=== PATIENT | female | born 1930 | race Caucasian/White ===

== ENCOUNTER 2017-12-12 02:27 | Inpatient (IN) | payer MEDICARE, OTHER ==
[~2017-12-12] VITALS: Ht 165.1 cm; Wt 75.2 kg
--- NOTE | ~2017-12-12 | HP ---
PATIENT: LILLIAN HOWARD MEDICAL RECORD: [id number] ACCOUNT: [id number] LOCATION:[address] : 30 ADMISSION DATE: 12/12/17 HISTORY AND PHYSICAL EXAMINATION DATE OF ADMISSION: 12/12/2017. CHIEF COMPLAINT: Shortness of breath. HISTORY OF PRESENT ILLNESS: The patient is an 87-year-old female who states approximately 10 days ago, she developed some sharp pain in the left side of her chest. She reported a stabbing type of pain. She did take aspirin, this resolved. Yesterday, she went to her daughters to have Easter. Shortly after returning home, the patient felt as if she was getting more short of breath, presented to the Emergency Room for evaluation. The patient was found to have a right pleural effusion. Therefore, she was admitted. 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 The patient is currently on Arimidex for this. The patient's history is significant for having had hypothyroidism as well as having hypertension. She has had rheumatoid arthritis. She has decreased hearing acuity. She has had renal insufficiency. MEDICATIONS: Include Arimidex 1 mg p.o. daily, aspirin 325 one p.o. every day, levothyroxine 50 mcg once a day, losartan 100 mg once a day, vitamin D3 1000 international units daily. ALLERGIES: TOPROL. PAST SURGICAL HISTORY: The patient has had a hysterectomy. She has also had a lumpectomy. She had cholecystectomy. FAMILY HISTORY: Mother of diabetes mellitus. One brother coronary artery bypass grafting. One brother had skin cancer. Father had prostate cancer. SOCIAL HISTORY: The patient is . She denies any ethanol or tobacco use or abuse. She was born and raised in [place]. REVIEW OF SYSTEMS: CONSTITUTIONAL: She denies any headaches, seizure or syncope. HEENT: She denies change in vision or auditory acuity. PULMONARY: She does report increased shortness of breath. CARDIOVASCULAR: She has had no chest pain, palpitation, PND, or orthopnea. GASTROINTESTINAL: No chronic nausea, vomiting, melena or hematochezia. GENITOURINARY: No urgency, frequency, or dysuria. PHYSICAL EXAMINATION: GENERAL: In the Emergency Room, the patient was alert. She is oriented times 3. Her pulse 109, respirations 18, blood pressure 173/87, temperature is 96.8, O2 sat is 97%. HEENT: Head is normocephalic. No lesions. Ears: TMs clear. Eyes: Pupils equal, round and reactive to light. Her extraocular movements are intact. Her nasal cavity, oral cavity, oropharynx clear. NECK: Supple. There is no adenopathy. HEART: Has a regular rate. HISTORY AND PHYSICAL [id number] LILLIAN HOWARD LUNGS: Clear. ABDOMEN: Soft, bowel sounds positive. No organomegaly. GENITAL AND RECTAL: Deferred. EXTREMITIES: Lower extremities have no edema. LABORATORY DATA: The patient had a sodium 142, potassium 4.1, chloride 107, CO2 is 22.7, BUN 21, creatinine 1.4, glucose slightly elevated at 152. Liver functions were unremarkable. Cardiac enzymes unremarkable. She had a proBNP slightly elevated at 654. White count 6.7, hemoglobin 14.7, hematocrit 44.1, her platelets were 152. X-ray as reported by the Emergency Room physician showed pleural effusion on the left. ASSESSMENT: 1. New left-sided pleural effusion. 2. History of breast cancer with lumpectomy. 3. Hypertension. 4. Hypothyroidism. 5. Hysterectomy and cholecystectomy. PLAN: The patient will be admitted. We will get a CT-guided thoracentesis. Also, pulmonary consultation will be obtained. The patient will be placed on antibiotics as well. Continue to evaluate. TRANSINT:[id number] Voice Confirmation ID: [id number] DOCUMENT ID: [id number] SELENA ROMAN MD at 0701 CC: [id number] DICTATION DATE: 12/12/17740 DATAPOWER DEVELOPER: 12/12/17 1038 ADM IN [facility] [address] [place] [address]
--- NOTE | ~2017-12-12 | EC ---
PATIENT:LILLIAN HOWARD DATE OF SERVICE: 12/12/17 SEX: F MEDICAL RECORD: [id number] DATE OF : 30 LOCATION[facility] AGE OF PATIENT: 87 ADMISSION DATE: 12/12/17 REFERRING PHYSICIAN: INTERPRETING PHYSICIAN: PRASHANTH SANFORD MD ECHOCARDIOGRAM REPORT ECHO CHARGES 4 ECHO COMPLETE Date: 12/13 CLINICAL DIAGNOSIS: EMOLUS, ASSESS FOR CLOTS ECHOCARDIOGRAPHIC MEASUREMENTS (adult normal given) AC root (d.<3.7cm) 3.7 cm LV Septum d (<1.2 cm> 1.2 cm Valve Excursion 1.7 cm LV Septum (systole) 1.7 cm Left Atria (s.<4.0cm> cm LVPW d(<1.2cm) 1.5 cm RV (d.<2.3cm) 3.7 cm LVPW (sytole) 1.8 cm LV diastole(<5.6CM) 5.7 cm MV E-F(>70mm/sec) cm LV systole 3.3 cm LVOT Diameter 1.6 cm MV exc.(>10mm) 1.8 cm Est.ejection fraction (50-75%) % DOPPLER: LVIT cm/sec A 111 cm/sec E 66.0 cm/sec LA cm/sec RVSP 38 mmHg LVOT 102 cm/sec AOP1/2T m/s Asc. Ao 180 cm/sec RVOT 71 cm/sec RA cm/sec PA 115 cm/sec AV Gradient Peak 12.98mmHg AV Mean 5.95 mmHg AV Area 1.8 cm MV Gradient Peak 7.08 mmHg MV Mean 2.33 mmHg MV Area cm COMMENTS: Personal Computer Network Engineer: 2 STELLA MATA County Auditor: 4 Dr. Sanford TAPE# PACS Pericardial Effusion N DATE OF SERVICE: PROCEDURE: Transthoracic echocardiogram. FINDINGS: 1. The left ventricle has moderate concentric left ventricular hypertrophy. There is marked dyssynchrony of the left ventricular wall motion consistent with his very wide bundle branch block that makes definitive estimation of the ejection fraction more difficult. However, there appears to be hypokinetic areas throughout with an ejection fraction of 30% to 35%. ECHOCARDIOGRAM REPORT [id number] LILLIAN HOWARD 2. The mitral valve has mitral annular calcification with [id number] mitral regurgitation. 3. The aortic valve has sclerosis, trace aortic insufficiency, otherwise normal function. 4. The tricuspid valve has mild tricuspid regurgitation, RVSP 35-40 mmHg. 5. Pericardium has trace pericardial effusion. 6. The IVC is dilated consistent with elevations in central venous pressure. 7. The right ventricle is mildly dilated. 8. The right atrium is mildly dilated. CONCLUSION: The patient has evidence of global hypokinesis, moderate cardiomyopathy, ejection fraction 30% to 35%; however, this number may not be entirely accurate because of his significant regional wall motion abnormalities due to the his bundle branch block. TRANSINT:[id number] Voice Confirmation ID: [id number] DOCUMENT ID: [id number] PRASHANTH SANFORD MD at 1426 CC: [id number] DICTATION DATE: 12/14/17828 GENERAL MERCHANDISE SALESPERSON: 12/14/17 1117 DIS IN 12/13/17 [facility] [address] [place] [address]
--- NOTE | ~2017-12-12 | CN ---
PATIENT NAME:LILLIAN MACK MEDICAL RECORD: [id number] : 30 LOCATION:[facility] ADMIT DATE: 12/12/17 ACCOUNT: [id number] CONSULTING PHYSICIAN: JHONNY COTTER MD REFERRING PHYSICIAN: SELENA ROMAN MD DATE OF CONSULTATION: 12/12/2017 CONSULT REQUESTING PHYSICIAN: Selena Roman MD REASON FOR CONSULTATION: Left-sided pleural effusion, pleurisy, possible pneumonia. HISTORY OF PRESENT ILLNESS: Ms. Mack is an 87-year-old very pleasant lady, but she is very hard of hearing. According to the patient, she is sick for the last 10 days. She developed sudden left-sided pleuritic type of chest pain, getting worse with coughing and sneezing. There was no associated fever or chill. Since yesterday, she has some worsening shortness of breath with exertion. Denies any wheezing. No significant cough. No sputum production. REVIEW OF SYSTEMS: As in history of present illness. PAST MEDICAL HISTORY: 1. History of CA of the breast in 2011. 2. Hypothyroidism. 3. Hypertension. 4. Rheumatoid arthritis. 5. Hard of hearing. 6. Chronic renal insufficiency. ALLERGIES: SHE IS ALLERGIC TO TOPROL. PRESENT MEDICATIONS: [employer] is reviewed. PERSONAL AND SOCIAL HISTORY: The patient is a nonsmoker and nondrinker. She is a . FAMILY HISTORY: Noncontributory. PHYSICAL EXAMINATION: GENERAL: Now, the patient is lying comfortably. She is not in acute distress. VITAL SIGNS: The blood pressure is 129/66, pulse is 65, respirations 18, temperature 98.8, SpO2 of 97% on 2.5 liters nasal cannula. HEENT: Conjunctivae are pink. Sclerae are not icteric. NECK: Supple. No JVD. CHEST: The chest excursion is minimal on both sides. There is a crackle at the left base. No wheezing. HEART: Rhythm regular. Normal sound. No murmur. ABDOMEN: Soft. Bowel sounds present. No hepatosplenomegaly. RECTAL: Deferred. EXTREMITIES: No cyanosis, no clubbing, no pedal edema. SKIN: The skin is warm, normal turgor. CENTRAL NERVOUS SYSTEM: The patient is awake and alert. She is very hard of hearing. Other cranial nerves are intact. CHEST RADIOGRAPH: There is atelectasis, infiltrate left lower lobe, possible CONSULT REPORT [id number] LILLIAN MACK small pleural effusion. OTHER LABORATORY DATA: CBC: The WBC is 6.7, hemoglobin 14.7, hematocrit 44.1, the platelet count 152. Chemistry: Sodium 142, potassium 4.2, BUN is 21, creatinine is 1.4. IMPRESSION: 1. Acute hypoxic respiratory failure. 2. Left-sided pleurisy. The differential diagnoses include, but not limited to; A. Pneumonia. B. Possible connective tissue disorder. C. Rule out pulmonary embolism. 3. Left lower lobe pneumonia. 4. Left pleural effusion. 5. Hypothyroidism. 6. Hypertension. 7. History of rheumatoid arthritis. RECOMMENDATION: I will check the CTA of the chest. Check the SURESH, rheumatoid factor. Continue empiric Zithromax and Rocephin. Supplemental oxygen is required. Check the CTA of the chest. Dr. Roman, thank you for involving me in the care of Ms. Mack. TRANSINT:[id number] Voice Confirmation ID: [id number] DOCUMENT ID: [id number] JHONNY COTTER MD at 1410 CC: SELENA ROMAN [id number] DICTATION DATE: 12/12/171741 ARTIFICIAL LEATHER CALENDER OPERATOR: 12/13/17 0207 DIS IN 12/13/17 [facility] [address] [place] [address]
[~2017-12-12 02:27] MED LIST: ANASTROZOLE1 MG PO; ASPIRIN325 MG PO; COZAAR100 MG PO; SYNTHROID50 MCG PO
[2017-12-12 02:44] LABS: BASOPHILS 0.1 % (0-2); EOSINOPHILS 1.8 % (0-7); HEMATOCRIT 44.1 % (36.0-48.0); HEMOGLOBIN 14.7 g/dL (12-16); IMMATURE GRANULOCYTES 0.4 % (0-5); LYMPHOCYTES 38.5 % (15-50); MCH 32.5 pg (26.0-34.0); MCHC 33.3 g/dL (31.0-37.0); MCV 97.4 fL (80.0-100.0); MEAN PLATELET VOLUME 11.4 fL (7.4-10.4); NEUTROPHILS 50.2 % (40-80); PLATELET COUNT 152 10x3/uL (130-400); RBC 4.53 10x6/uL (4.00-5.40); RDW 12.9 % (11.5-14.5); WBC 6.7 10x3/uL (4.8-10.8)
[2017-12-12 02:57] LABS: ALBUMIN 3.4 g/dL (3.4-5.0); ALKALINE PHOSPHATASE 112 U/L (46-116); ALT (SGPT) 24 U/L (10-68); BILIRUBIN - TOTAL 0.66 mg/dL (0.2-1.3); CALC OSMOLALITY 288 mosm/kg (275-300); CALCIUM 8.8 mg/dL (8.5-10.1); CARBON DIOXIDE 22.7 mmol/L (21.0-32.0); CHLORIDE - SERUM 107 mmol/L (98-107); CREATININE - SERUM 1.4 mg/dL (0.6-1.3); GLUCOSE 152 mg/dL (74-106); POTASSIUM - SERUM 4.2 mmol/L (3.5-5.1); PROTEIN - SERUM 7.7 g/dL (6.4-8.2); SODIUM 142 mmol/L (136-145); UREA NITROGEN 21 mg/dL (7-18); eGFR NON AFRICAN AMERICAN 38 mL/min (90-120)
[2017-12-12 03:07] LABS: CHOL - HDL RATIO 6.1 ratio (2.3-4.1); CHOLESTEROL, TOTAL 258 mg/dL (0-200); CKMB 3.1 U/L (0.0-3.6); CREATINE KINASE 183 UL (21-215); HDL CHOLESTEROL 42 mg/dL (32-96); LDL CHOLESTEROL 196 mg/dL (0-100); LDL-HDL RATIO 4.7 ratio (1.5-3.5); PRO BNP 654 pg/mL (0-450); TRIGLYCERIDE 100 mg/dL (30-200); TROPONIN-I 0.036 ng/mL (0.000-0.060)
[2017-12-12 04:36] VITALS: BMI 24.1
[2017-12-12 08:35] VITALS: BP 141/68
[2017-12-12 11:40] VITALS: BP 124/64
[2017-12-12 14:26] VITALS: BMI 24.1
[2017-12-12 14:58] VITALS: BP 129/66
[2017-12-12 15:34] VITALS: BP 129/66
[2017-12-12 21:09] VITALS: BP 132/63
[2017-12-13] VITALS (9 sets, daily range): BP systolic 130–178; BP diastolic 55–103; Ht 165.1 cm; Wt 75.2 kg
[2017-12-13 04:11] LABS: BASOPHILS 0.3 % (0-2); EOSINOPHILS 2.5 % (0-7); HEMATOCRIT 38.5 % (36.0-48.0); HEMOGLOBIN 12.5 g/dL (12-16); IMMATURE GRANULOCYTES 0.3 % (0-5); LYMPHOCYTES 28.8 % (15-50); MCH 31.8 pg (26.0-34.0); MCHC 32.5 g/dL (31.0-37.0); MEAN PLATELET VOLUME 11.6 fL (7.4-10.4); NEUTROPHILS 58.1 % (40-80); PLATELET COUNT 141 10x3/uL (130-400); RBC 3.93 10x6/uL (4.00-5.40); RDW 13.1 % (11.5-14.5); WBC 6.8 10x3/uL (4.8-10.8)
[2017-12-13 04:22] LABS: APTT 36.7 SECONDS (22.8-39.4); INR 1.13 (0.85-1.17); PROTIME 14.1 SECONDS (11.6-15.0)
[2017-12-13 04:28] LABS: ANION GAP 10.5 mmol/L (8-16); BILIRUBIN - TOTAL 0.41 mg/dL (0.2-1.3); CALCIUM 8.1 mg/dL (8.5-10.1); CREATININE - SERUM 1.5 mg/dL (0.6-1.3); POTASSIUM - SERUM 4.5 mmol/L (3.5-5.1); PROTEIN - SERUM 5.9 g/dL (6.4-8.2)
[2017-12-13 04:29] LABS: ALBUMIN 2.4 g/dL (3.4-5.0)
[2017-12-13 10:55] LABS: PROTEIN - BODY FLUID 3.5 G/DL
[2017-12-13 11:30] LABS: MACROPHAGES BF 12 %; MESOTHELIALS BF 10 %; NEUT - BF 45 %
[2017-12-13 14:02] LABS: INR 1.15 (0.85-1.17); PROTIME 14.3 SECONDS (11.6-15.0)
[2017-12-14 14:21] LABS: ANA REFLEX - DIRECT Negative (Negative)
[2017-12-15 15:24] LABS: AFB SPECIMEN PROCESSING Not Indicated (())
[2017-12-21 11:21] LABS: FUNGUS STAIN Final report (())
[2018-01-16 12:10] LABS: FUNGUS MYCOLOGY CULTURE Final report (())
[2018-02-01 13:19] LABS: ACID FAST CULTURE Negative (()); ACID FAST SMEAR Negative (())
== END 2017-12-13 15:49 | disposition short-term general hospital (02) | DRG 175 ==
LOC: D.ER 02:27 → D.M2 03:42 → D.ICU 03:42
PROVIDERS: Family Medicine; General Practice; Internal Medicine Pulmonary Disease
PROC: 0W9B3ZZ Drainage of Left Pleural Cavity, Percutaneous Approach (ICD-10-PCS; principal; 2017-12-13 09:15)
DX: I26.92 Saddle embolus of pulmonary artery without acute cor pulmonale (principal); J96.01 Acute respiratory failure with hypoxia; J18.9 Pneumonia, unspecified organism; J90 Pleural effusion, not elsewhere classified; I10 Essential (primary) hypertension; M06.9 Rheumatoid arthritis, unspecified; E03.9 Hypothyroidism, unspecified; Z85.3 Personal history of malignant neoplasm of breast

== ENCOUNTER 2018-01-30 10:42 | Outpatient (CLI) | payer MEDICARE, OTHER ==
[~2018-01-30] VITALS: Ht 165.1 cm; Wt 72.7 kg
[2018-01-30 11:51] LABS: BASOPHILS 0.2 % (0-2); EOSINOPHILS 1.2 % (0-7); HEMATOCRIT 38.2 % (36.0-48.0); HEMOGLOBIN 12.4 g/dL (12-16); LYMPHOCYTES 15.6 % (15-50); MCH 31.9 pg (26.0-34.0); MCHC 32.5 g/dL (31.0-37.0); MCV 98.2 fL (80.0-100.0); MEAN PLATELET VOLUME 11.4 fL (7.4-10.4); MONOCYTES 10.4 % (2-11); NEUTROPHILS 72.6 % (40-80); PLATELET COUNT 147 10x3/uL (130-400); RBC 3.89 10x6/uL (4.00-5.40); RDW 13.5 % (11.5-14.5); WBC 4.1 10x3/uL (4.8-10.8)
[2018-01-30] MEDS ORDERED: MEXITIL 150 MG150 MG PO (11:51)
[2018-01-30 11:52] LABS: APTT 35.5 SECONDS (22.8-39.4); INR 1.13 (0.85-1.17); PROTIME 14.1 SECONDS (11.6-15.0)
[2018-01-30] MEDS ORDERED: XARELTO10 MG PO (11:53)
[2018-01-30] MEDS ORDERED: MULTIPLE VITAMI1 TA1 PO (11:53)
[2018-01-30 11:58] VITALS: BP 152/87; Ht 165.1 cm; Wt 72.7 kg
[2018-01-30 12:14] LABS: ANION GAP 16.1 mmol/L (8-16); CARBON DIOXIDE 23.9 mmol/L (21.0-32.0); CREATININE - SERUM 1.7 mg/dL (0.6-1.3)
== END 2018-01-30 17:35 | disposition home or self-care (01) ==
LOC: D.SP 10:42 → D.CT 13:00 → D.SP 13:00 → D.OPS 13:00 → D.SP 17:35
PROVIDERS: Radiology Diagnostic Radiology
DX: J90 Pleural effusion, not elsewhere classified (principal); I26.99 Other pulmonary embolism without acute cor pulmonale; A49.02 Methicillin resistant Staphylococcus aureus infection, unspecified site; L02.91 Cutaneous abscess, unspecified; Z01.812 Encounter for preprocedural laboratory examination

== ENCOUNTER 2018-02-26 17:54 | Emergency (ER) | payer MEDICARE, OTHER ==
[~2018-02-26] VITALS: Ht 165.1 cm; Wt 72.7 kg
[~2018-02-26 17:54] MED LIST changes: +MEXITIL 150 MG150 MG PO; +MULTIPLE VITAMI1 TA1 PO; +XARELTO10 MG PO
[2018-02-26 18:01] VITALS: Ht 165.1 cm; Wt 72.7 kg
[2018-02-26] MEDS ORDERED: FUROSEMIDE40 MG PO (18:08)
[2018-02-26] MEDS ORDERED: ANASTROZOLE1 MG PO (18:08)
[2018-02-26] MEDS ORDERED: K-TAB10 MEQ PO (18:09)
[2018-02-26] MEDS ORDERED: XARELTO20 MG PO (18:10)
[2018-02-26 18:47] LABS: CKMB 1.3 U/L (0.0-3.6); CREATINE KINASE 84 UL (21-215); PRO BNP 809 pg/mL (0-450)
[2018-02-26 18:50] LABS: TROPONIN-I < 0.017 ng/mL (0.000-0.060)
[2018-02-26 20:02] VITALS: BP 135/85
== END 2018-02-26 20:04 | disposition home or self-care (01) ==
LOC: D.ER 17:54
PROVIDERS: Emergency Medicine
DX: R07.89 Other chest pain (principal); Z86.711 Personal history of pulmonary embolism; Z86.73 Personal history of transient ischemic attack (TIA), and cerebral infarction without residual deficits; I10 Essential (primary) hypertension

== ENCOUNTER → 2018-11-28 14:36 | Outpatient (CLI) | payer MEDICARE, OTHER ==
[2018-02-26 18:01] VITALS: BMI 26.6
[~2018-11-28 14:36] MED LIST changes: +FUROSEMIDE40 MG PO; +K-TAB10 MEQ PO; +XARELTO20 MG PO
== END | disposition home or self-care (01) ==
LOC: D.US 14:36
PROVIDERS: ATTEND Family Medicine
DX: R10.10 Upper abdominal pain, unspecified (principal)

== ENCOUNTER 2018-12-01 19:00 | Outpatient (CLI) | payer MEDICARE, OTHER ==
[2018-02-26 18:01] VITALS: BMI 26.6
== END 2018-12-01 23:59 | disposition home or self-care (01) ==
LOC: D.MAMMO 19:00
PROVIDERS: ATTEND Family Medicine
DX: N63.11 Unspecified lump in the right breast, upper outer quadrant (principal)

== ENCOUNTER → 2018-12-07 09:37 | Outpatient (CLI) | payer MEDICARE, OTHER ==
[2018-02-26 18:01] VITALS: BMI 26.6
== END | disposition home or self-care (01) ==
LOC: D.MRI 09:37
PROVIDERS: ATTEND Family Medicine
DX: K83.9 Disease of biliary tract, unspecified (principal)

== ENCOUNTER → 2018-12-14 12:53 | Outpatient (CLI) | payer MEDICARE, OTHER ==
[2018-02-26 18:01] VITALS: BMI 26.6
== END | disposition home or self-care (01) ==
LOC: D.US 12:53
PROVIDERS: ATTEND Family Medicine
DX: N63.11 Unspecified lump in the right breast, upper outer quadrant (principal)

== ENCOUNTER 2019-01-07 18:35 | Inpatient (IN) | payer MEDICARE, OTHER ==
[~2019-01-07] VITALS: Ht 165.1 cm; Wt 49.9 kg
[2019-01-07 18:59] LABS: BASOPHILS 0.2 % (0-2); EOSINOPHILS 0.2 % (0-7); HEMATOCRIT 43.8 % (36.0-48.0); HEMOGLOBIN 15.3 g/dL (12-16); IMMATURE GRANULOCYTES 0.5 % (0-5); LYMPHOCYTES 15.4 % (15-50); MCH 31.2 pg (26.0-34.0); MCHC 34.9 g/dL (31.0-37.0); MCV 89.4 fL (80.0-100.0); MEAN PLATELET VOLUME 10.8 fL (7.4-10.4); MONOCYTES 11.6 % (2-11); NEUTROPHILS 72.1 % (40-80); PLATELET COUNT 159 10x3/uL (130-400); RDW 15.3 % (11.5-14.5); WBC 6.6 10x3/uL (4.8-10.8)
[2019-01-07 19:03] LABS: APPEARANCE CLEAR (CLEAR); BILIRUBIN 1+ (NEGATIVE); COLOR DK YELLOW (YELLOW); GLUCOSE NEGATIVE (NEGATIVE); KETONE MODERATE mg/dL (NEGATIVE); NITRITE NEGATIVE (NEGATIVE); PROTEIN NEGATIVE (NEGATIVE)
[2019-01-07 19:14] LABS: ANION GAP 17.4 mmol/L (8-16); BILIRUBIN - TOTAL 2.07 mg/dL (0.2-1.3); CALCIUM 9.6 mg/dL (8.5-10.1); CARBON DIOXIDE 25.7 mmol/L (21.0-32.0); POTASSIUM - SERUM 3.1 mmol/L (3.5-5.1); PROTEIN - SERUM 6.7 g/dL (6.4-8.2)
[2019-01-07 19:34] LABS: APTT 33.9 SECONDS (22.8-39.4); INR 1.13 (0.85-1.17)
[2019-01-07 19:50] LABS: MAGNESIUM - SERUM 1.6 mg/dL (1.8-2.4); THYROID STIMULATING HORMONE 7.03 uIU/mL (0.36-3.74)
[2019-01-07 19:52] LABS: TROPONIN-I 0.017 ng/mL (0.000-0.060)
[2019-01-07 20:57] VITALS: BP 149/92
--- NOTE | 2019-01-07 21:35 | NUR ---
PT ARRIVED ON UNIT VIA STRETCHER ESCORTED BY ER STAFF AND FAMILY MEMBER. TRANSFERRED TO BED AND POSITIONED FOR COMFORT. PT TURNED ONTO RIGHT SIDE PROPPED WITH PILLOW AND HEELS BRIDGED. IV FLUIDS RE-STARTED PER ORDER. DAUGHTER IS AT BEDSIDE.
--- NOTE | 2019-01-07 22:45 | NUR ---
PT TAKEN TO CT / RADIOLOGY FOR CT SCANS VIA BED.
--- NOTE | 2019-01-07 23:05 | NUR ---
PT RETURNED FROM RADIOLOGY VIA BED.
[2019-01-08] VITALS (8 sets, daily range): BP systolic 125–141; BP diastolic 58–69; Ht 165.1 cm; Wt 49.9 kg
--- NOTE | 2019-01-08 00:38 | NUR ---
ADMISSION ASSESSMENT AND HISTORY COMPLETE.
--- NOTE | 2019-01-08 07:30 | NUR ---
PT RESTING IN BED WITH EYES CLOSED. EASILY AROUSED. [place]. NO ACUTE DISTRESS NOTED. DENIES PAIN AT THIS TIME. IV TO LEFT FOREARM WITH NS @ 125ML/HR INFUSING VIA PUMP. SITE WITHOUT REDNESS OR EDEMA. PT DENIES FURTHER NEEDS AT THIS TIME. CL WITHIN REACH. ENCOURAGED TO CALL WITH NEEDS. CONTINUE POC
--- NOTE | 2019-01-08 07:55 | NUR ---
PT SITTING UP IN BED WITH FAMILY AT BEDSIDE. NO ACUTE DISTRESS NOTED. RESP EVEN AND UNLABORED. DENIES PAIN AT THIS TIME. IV TO RIGHT FOREARM, SALINE LOC. IV TO LEFT CHEST PORT, SALINE LOC. BOTH PATENT, WITHOUT REDNESS OR EDEMA. EASY TO FLUSH. PT AND FAMILY DENY NEEDS AT THIS TIME CL WITHIN REACH. ENCOURAGED TO CALL WITH NEEDS.
[2019-01-08 10:19] LABS: BASOPHILS 0.1 % (0-2); EOSINOPHILS 0.1 % (0-7); HEMATOCRIT 39.1 % (36.0-48.0); HEMOGLOBIN 13.6 g/dL (12-16); IMMATURE GRANULOCYTES 0.7 % (0-5); LYMPHOCYTES 14.9 % (15-50); MCH 31.2 pg (26.0-34.0); MCHC 34.8 g/dL (31.0-37.0); MCV 89.7 fL (80.0-100.0); MEAN PLATELET VOLUME 10.8 fL (7.4-10.4); MONOCYTES 9.3 % (2-11); NEUTROPHILS 74.9 % (40-80); PLATELET COUNT 149 10x3/uL (130-400); RBC 4.36 10x6/uL (4.00-5.40); RDW 15.2 % (11.5-14.5); WBC 7.4 10x3/uL (4.8-10.8)
[2019-01-08 10:25] LABS: ALBUMIN 1.7 g/dL (3.4-5.0); ANION GAP 13.7 mmol/L (8-16); BILIRUBIN - TOTAL 1.64 mg/dL (0.2-1.3); CALCIUM 8.7 mg/dL (8.5-10.1); CARBON DIOXIDE 23.5 mmol/L (21.0-32.0); CREATININE - SERUM 0.9 mg/dL (0.6-1.3); POTASSIUM - SERUM 3.2 mmol/L (3.5-5.1); PROTEIN - SERUM 5.7 g/dL (6.4-8.2)
--- NOTE | 2019-01-09 03:50 | NUR ---
2015)rec'd. chge of shift awake confused as to time place situation.assisted onto bed pain voided 250cc dk jake urine. carleen well with max. assist. will continue to monitor for any chges and follow current plan of care
[2019-01-09 04:00] VITALS: BP 132/63
[2019-01-09 05:27] LABS: BASOPHILS 0 % (0-2); EOSINOPHILS 0 % (0-7); HEMATOCRIT 38.5 % (36.0-48.0); HEMOGLOBIN 13.5 g/dL (12-16); IMMATURE GRANULOCYTES 0.7 % (0-5); LYMPHOCYTES 15.3 % (15-50); MCH 31.3 pg (26.0-34.0); MCHC 35.1 g/dL (31.0-37.0); MCV 89.1 fL (80.0-100.0); MONOCYTES 12.7 % (2-11); NEUTROPHILS 71.3 % (40-80); PLATELET COUNT 143 10x3/uL (130-400); RBC 4.32 10x6/uL (4.00-5.40); RDW 15.3 % (11.5-14.5)
[2019-01-09 06:12] LABS: ALBUMIN 1.8 g/dL (3.4-5.0); ALKALINE PHOSPHATASE 373 U/L (46-116); BILIRUBIN - TOTAL 1.24 mg/dL (0.2-1.3); CALCIUM 8.4 mg/dL (8.5-10.1); CARBON DIOXIDE 24.7 mmol/L (21.0-32.0); CHLORIDE - SERUM 103 mmol/L (98-107); CREATININE - SERUM 0.7 mg/dL (0.6-1.3); POTASSIUM - SERUM 3.4 mmol/L (3.5-5.1); PROTEIN - SERUM 4.9 g/dL (6.4-8.2); SODIUM 138 mmol/L (136-145); UREA NITROGEN 12 mg/dL (7-18); eGFR NON AFRICAN AMERICAN 83 mL/min (90-120)
[2019-01-09 06:17] LABS: ALT (SGPT) 19 U/L (10-68); CALC OSMOLALITY 276 mosm/kg (275-300); GLUCOSE 114 mg/dL (74-106)
--- NOTE | 2019-01-09 07:11 | NUR ---
I have reviewed this patient and I concur with the Shift Assessment completed by the Licensed Practical Nurse today this shift.
--- NOTE | 2019-01-09 07:46 | NUR ---
AWAKE AND ALERT. ORIENTED TO SELF ONLY. ATTEMPTS TO REORIENT WITH ONLY SHORT TERM SUCCESS. LUNGS ARE CLEAR BIALTERALLY, NO COUGH NOTED. SKIN IS INTACT WITH SOME REDNESS NOTED TO BACK AND COCCYX. WILL MONITOR. IV TO LEFT FOREARM IS PATENT WITHOUT REDNESS AT INSERTION SITE. DENIES NEEDS.
--- NOTE | 2019-01-09 09:07 | MORECARE ---
CASE MANAGEMENT DISCHARGE SUMMARY PATIENT: LILLIAN HOWARD UNIT: [id number] ADM DATE: 01/07/19 AGE: 88 : 30 SEX: F ROOM/BED: D.2201 AUTHOR: LYNDON LÓPEZ PHYSICIAN: REFERRING PHYSICIAN: MARIEL RODGERS MD DATE OF SERVICE: 01/09/19 Discharge Plan Patient Name: LILLIAN HOWARD Facility: [facility]:[place] : 1930 Planned Disposition: Anticipated Discharge Date: Discharge Date: Expected LOS: Initial Reviewer: [email or web address] Initial Review Date: 01/07/2019 Generated: 01/09/19 10:07 am Comments DCP- Discharge Planning Updated by [email or web address]: Kathryn Salcedo on 01/09/19 8:03 am MICHELLE Leggett met with patient and family yesterday and gave them information about hospice. They will think about it and get back with CM . Patient Name: LILLIAN HOWARD Page [phone] at 0907 All edits/amendments must be made on the electronic document DICTATION DATE: 01/09/19905 FACTORY FOCUS TECHNICIAN: RC 01/09/19905 RPT#: [id number] DC DATE: STATUS: ADM IN [facility] [address] [place] [address] END OF REPORT
[2019-01-09 09:14] VITALS: BP 133/58
--- NOTE | 2019-01-09 09:30 | NUR ---
ATE MOST OF BREAKFAST TRAY. DENIES NEEDS. DAUGHTER AT BEDSIDE.
--- NOTE | 2019-01-09 12:30 | NUR ---
LUNCH SERVED IN ROOM. DAUGHTER ASSISTED WITH MEAL. ATE ALMOST HALF. DENIES NEEDS.
--- NOTE | 2019-01-09 12:49 | MORECARE ---
CASE MANAGEMENT DISCHARGE SUMMARY PATIENT: LILLIAN HOWARD UNIT: [id number] ADM DATE: 01/07/19 AGE: 88 : 30 SEX: F ROOM/BED: D.2201 AUTHOR: LYNDON LÓPEZ PHYSICIAN: REFERRING PHYSICIAN: MARIEL RODGERS MD DATE OF SERVICE: 01/09/19 Discharge Plan Patient Name: LILLIAN HOWARD Facility: [facility] : 1930 Planned Disposition: Anticipated Discharge Date: Discharge Date: Expected LOS: Initial Reviewer: [email or web address] Initial Review Date: 01/07/2019 Generated: 01/09/19 1:49 pm Comments DCP- Discharge Planning Updated by [email or web address]: Kathryn Salcedo on 01/09/19 11:47 am MICHELLE SARAVIA met with patient & daughter Karen Alan to talk about her discharge plan. She would like to do [facility] at home. JAGRUTI signed and placed with in chart. I have sent the referral to [facility] and the family wants to meet after 5:00 pm today. CM will continue to follow and assist with DC planning DCP- Discharge Planning Updated by [email or web address]: Kathryn Salcedo on 01/09/19 8:03 am MICHELLE Leggett met with patient and family yesterday and gave them information about hospice. They will think about it and get back with CM . External Providers External Provider: [facility] Next Contact Date: Service Request Date: Service Type: Resolution: Reviewer: Comments: Coverage Notice Reviewer: [id number] - Kathryn Salcedo Notice Issued Date-Time: 01/09/2019 12:30 Notice Type: Patient Choice Letter Notice Delivered To: Patient Relationship to Patient: Instructional Resource Teacher Name: Delivery Method: HAND - Hand Delivered Ammy Days: Prior Verbal Notification: Recipient Understood Notice: Yes Recipient Signature: Yes Med Rec Note Co-signed by Attending: Coverage Notice Comment: Last DP export: 01/09/19 8:07 a Patient Name: LILLIAN HOWARD Page [phone] at 1249 All edits/amendments must be made on the electronic document DICTATION DATE: 01/09/191248 FITNESS CENTRE MANAGER: RC 01/09/191248 RPT#: [id number] DC DATE: STATUS: ADM IN [facility] [address] [place] [address] END OF REPORT
--- NOTE | 2019-01-09 12:57 | MORECARE ---
CASE MANAGEMENT DISCHARGE SUMMARY PATIENT: LILLIAN HOWARD UNIT: [id number] ADM DATE: 01/07/19 AGE: 88 : 30 SEX: F ROOM/BED: D.2201 AUTHOR: LYNDON LÓPEZ PHYSICIAN: REFERRING PHYSICIAN: MARIEL RODGERS MD DATE OF SERVICE: 01/09/19 Discharge Plan Patient Name: LILLIAN HOWARD Facility: [facility]:[place] : 1930 Planned Disposition: Anticipated Discharge Date: Discharge Date: Expected LOS: Initial Reviewer: [email or web address] Initial Review Date: 01/07/2019 Generated: 01/09/19 1:56 pm Comments DCP- Discharge Planning Updated by [email or web address]: Kathryn Slacedo on 01/09/19 11:[address] spoke with Lynn at [facility] she will get intouch with daughter and set up the meeting. I explained to her that they wanted to meet after 5:00pm DCP- Discharge Planning Updated by [email or web address]: Kathryn Salcedo on 01/09/19 11:[address] CM met with patient & daughter Karen Alan to talk about her discharge plan. She would like to do [facility] at home. JAGRUTI signed and placed with in chart. I have sent the referral to [facility] and the family wants to meet after 5:00 pm today. CM will continue to follow and assist with DC planning DCP- Discharge Planning Updated by [email or web address]: Kathryn Salcedo on 01/09/19 8:[address] Betsey met with patient and family yesterday and gave them information about hospice. They will think about it and get back with CM . Coverage Notice Reviewer: [id number] - Kathryn Salcedo Notice Issued Date-Time: 01/09/2019 12:30 Notice Type: Patient Choice Letter Notice Delivered To: Patient Relationship to Patient: Die Turner Name: Delivery Method: HAND - Hand Delivered Ammy Days: Prior Verbal Notification: Recipient Understood Notice: Yes Recipient Signature: Yes Med Rec Note Co-signed by Attending: Coverage Notice Comment: Last DP export: 01/09/19 11:49 a Patient Name: LILLIAN HOWARD Page [phone] at 1257 All edits/amendments must be made on the electronic document DICTATION DATE: 01/09/191255 HOTEL SERVICES SALES REPRESENTATIVE: RC 01/09/191255 RPT#: [id number] DC DATE: STATUS: ADM IN [facility] [address] [place] [address] END OF REPORT
[2019-01-09 13:45] VITALS: BP 123/76
--- NOTE | 2019-01-09 15:56 | MORECARE ---
CASE MANAGEMENT DISCHARGE SUMMARY PATIENT: LILLIAN HOWARD UNIT: [id number] ADM DATE: 01/07/19 AGE: 88 : 30 SEX: F ROOM/BED: D.2209 AUTHOR: MARIBEL,DOC PHYSICIAN: REFERRING PHYSICIAN: MARIEL RODGERS MD DATE OF SERVICE: 01/09/19 Discharge Plan Patient Name: LILLIAN HOWARD Facility: [facility]:[place] : 1930 Planned Disposition: Anticipated Discharge Date: Discharge Date: Expected LOS: Initial Reviewer: [email or web address] Initial Review Date: 01/07/2019 Generated: 01/09/19 4:56 pm Comments DCP- Discharge Planning Updated by [email or web address]: Kathryn Salcedo on 01/09/19 2:[address] [facility] WILL BE MEETING WITH THE FAMILY AT 5:30 PM TODAY DCP- Discharge Planning Updated by [email or web address]: Kathryn Salcedo on 01/09/19 11:[address] spoke with Lynn at [facility] she will get intouch with daughter and set up the meeting. I explained to her that they wanted to meet after 5:00pm DCP- Discharge Planning Updated by [id number]: Kathryn Salcedo on 01/09/19 11:[address] CM met with patient & daughter Karen Alan to talk about her discharge plan. She would like to do [facility] at home. JAGRUTI signed and placed with in chart. I have sent the referral to [facility] and the family wants to meet after 5:00 pm today. CM will continue to follow and assist with DC planning DCP- Discharge Planning Updated by [email or web address]: Kathryn Salcedo on 01/09/19 8:[address] Betsey met with patient and family yesterday and gave them information about hospice. They will think about it and get back with CM . Coverage Notice Reviewer: [id number] - Kathryn Salcedo Notice Issued Date-Time: 01/09/2019 12:30 Notice Type: Patient Choice Letter Notice Delivered To: Patient Relationship to Patient: Bag Machine Set Up Operator Name: Delivery Method: HAND - Hand Delivered Ammy Days: Prior Verbal Notification: Recipient Understood Notice: Yes Recipient Signature: Yes Med Rec Note Co-signed by Attending: Coverage Notice Comment: Last DP export: 01/09/19 11:57 a Patient Name: LILLIAN HOWARD Page [phone] at 1556 All edits/amendments must be made on the electronic document DICTATION DATE: 01/09/191554 SHIP MATE: RC 01/09/191554 RPT#: [id number] DC DATE: STATUS: ADM IN [facility] [address] [place] [address] END OF REPORT
[2019-01-09 16:55] VITALS: BP 122/68
--- NOTE | 2019-01-09 18:43 | NUR ---
ATE ABOUT ONE THIRD OF SALAD FOR DINNER. FAMILY AT BEDSIDE. DENIES NEEDS. NO CHANGES NOTED.
--- NOTE | 2019-01-09 19:54 | NUR ---
OT NOTE: PT COMPLETED HYGIENE WITH MOD A. PT COMPLETED HAIR GROOMING WITH SET UP. PT REQUIRED MOD A FOR BED MOB TASKS. PT COMPLETED UE AROM EXS. THANK YOU, REY IRVIN
[2019-01-09 20:00] VITALS: BP 142/66
--- NOTE | 2019-01-09 22:29 | NUR ---
REC'D CHGE OF SHIFT ON BEDSIDE COMMODE DTR AT BEDSIDE. DENIES ANY FURTHER DISCOMFORT AT PRESENT TIME. WILL CONTINUE TO MONITOR FOR ANY CHGES AND FOLLOW CURRENT PLAN OF CARE
[2019-01-10] VITALS: BP 140/66
[2019-01-10 04:00] VITALS: BP 131/73
[2019-01-10 06:00] LABS: ALBUMIN 1.6 g/dL (3.4-5.0); ANION GAP 17.2 mmol/L (8-16); BILIRUBIN - TOTAL 1.09 mg/dL (0.2-1.3); CALCIUM 8.9 mg/dL (8.5-10.1); CARBON DIOXIDE 20.4 mmol/L (21.0-32.0); CREATININE - SERUM 0.8 mg/dL (0.6-1.3); POTASSIUM - SERUM 3.6 mmol/L (3.5-5.1); PROTEIN - SERUM 5.7 g/dL (6.4-8.2)
[2019-01-10 06:07] LABS: BASOPHILS 0.1 % (0-2); EOSINOPHILS 0 % (0-7); HEMATOCRIT 38.8 % (36.0-48.0); HEMOGLOBIN 13.6 g/dL (12-16); IMMATURE GRANULOCYTES 0.8 % (0-5); LYMPHOCYTES 13.5 % (15-50); MCH 31.5 pg (26.0-34.0); MCHC 35.1 g/dL (31.0-37.0); MCV 89.8 fL (80.0-100.0); MONOCYTES 12.4 % (2-11); NEUTROPHILS 73.2 % (40-80); PLATELET COUNT 149 10x3/uL (130-400); RBC 4.32 10x6/uL (4.00-5.40); RDW 15.6 % (11.5-14.5); WBC 7.5 10x3/uL (4.8-10.8)
--- NOTE | 2019-01-10 06:43 | NUR ---
I have reviewed this patient and I concur with the Shift Assessment completed by the Licensed Practical Nurse today this shift.
--- NOTE | 2019-01-10 08:14 | NUR ---
AWAKE AND ALERT. ORIENTED X3. NO C/O AT THIS TIME. LUNGS ARE CLEAR BUT DIMINISHED THROUGHOUT. OCCASSIONAL DRY COUGH NOTED. SKIN IS INTACT WITHOUT REDNESS. SL TO LEFT WRIST IS PATENT WITHOUT REDNESS AT INSERTION SITE. DAUGHTER AT BEDSIDE. DENIES NEEDS. SITTING UP IN BED EATING FOOD FROM HOME.
[2019-01-10 09:00] VITALS: BP 141/70
--- NOTE | 2019-01-10 10:00 | NUR ---
RESTING QUIETLY IN BED. DENIES NEEDS.
--- NOTE | 2019-01-10 12:30 | MORECARE ---
CASE MANAGEMENT DISCHARGE SUMMARY PATIENT: LILLIAN HOWARD UNIT: [id number] ADM DATE: 01/07/19 AGE: 88 : 30 SEX: F ROOM/BED: D.2201 AUTHOR: LYNDON LÓPEZ PHYSICIAN: REFERRING PHYSICIAN: MARIEL RODGERS MD DATE OF SERVICE: 01/10/19 Discharge Plan Patient Name: LILLIAN HOWARD Facility: [facility]:[place] : 1930 Planned Disposition: Anticipated Discharge Date: Discharge Date: Expected LOS: Initial Reviewer: [email or web address] Initial Review Date: 01/07/2019 Generated: 01/10/19 1:29 pm Comments DCP- Discharge Planning Updated by [email or web address]: Kathryn Salcedo on 01/10/19 11:[address] Patient should be discharging home today on [facility]. Karen (patient's daughter) stated that the bed has been delivered to the home. She also asked for a wheelchair. I called Mindi at [facility] to let her know. IMM served and explained. I anticipate a DC today. CM to follow and assist as needed DCP- Discharge Planning Updated by [email or web address]: Kathryn Salcedo on 01/09/19 2:[address] [facility] WILL BE MEETING WITH THE FAMILY AT 5:30 PM TODAY DCP- Discharge Planning Updated by [email or web address]: Kathryn Salcedo on 01/09/19 11:[address] spoke with Lynn at [facility] she will get intouch with daughter and set up the meeting. I explained to her that they wanted to meet after 5:00pm DCP- Discharge Planning Updated by [id number]: Kathryn Salcedo on 01/09/19 11:[address] CM met with patient & daughter Karen Martines to talk about her discharge plan. She would like to do [facility] at home. JAGRUTI signed and placed with in chart. I have sent the referral to [facility] and the family wants to meet after 5:00 pm today. CM will continue to follow and assist with DC planning DCP- Discharge Planning Updated by [email or web address]: Kathryn Salcedo on 01/09/19 8:03 am MICHELLE Betsey met with patient and family yesterday and gave them information about hospice. They will think about it and get back with CM . Coverage Notice Reviewer: [id number] Queenie Salcedo Notice Issued Date-Time: 01/09/2019 12:30 Notice Type: Patient Choice Letter Notice Delivered To: Patient Relationship to Patient: Restaurant Busser Name: Delivery Method: HAND - Hand Delivered Ammy Days: Prior Verbal Notification: Recipient Understood Notice: Yes Recipient Signature: Yes Med Rec Note Co-signed by Attending: Coverage Notice Comment: Reviewer: [email or web address] Queenie Salcedo Notice Issued Date-Time: 01/10/2019 12:20 Notice Type: IM Discharge Notice Notice Delivered To: Family Member Relationship to Patient: Daughter Restaurant Busser Name: karen martines Delivery Method: HAND - Hand Delivered Ammy Days: Prior Verbal Notification: Recipient Understood Notice: Yes Recipient Signature: Yes Med Rec Note Co-signed by Attending: Coverage Notice Comment: Last DP export: 01/09/19 2:56 p Patient Name: LILLIAN HOWARD Page [phone] at 1230 All edits/amendments must be made on the electronic document DICTATION DATE: 01/10/191228 SHOT CORE DRILL OPERATOR HELPER: RC 01/10/191228 RPT#: [id number] DC DATE: STATUS: ADM IN [facility] [address] [place] [address] END OF REPORT
[2019-01-10 13:14] VITALS: BP 128/63
[2019-01-10] MEDS ORDERED: ZITHROMAX250 MG PO (13:18)
--- NOTE | 2019-01-10 14:54 | NUR ---
OT NOTE: BED MOB WITH MOD ASSIST..P.T. IN TO ASSIST PT WITH AMBULATION. PT ABLE TO AMB WITH RW APPROX 14-16 FT WITH RW, MIN/MOD ASSIST, AND ASSIST FOR WALKER MGMT. ABLE TO CLARE GOWN WITH MIN ASSIST ; MAX ASSIST TO CLARE/DOFF SOCKS; SET UP WITH GROOMING INCLUDING WASHING FACE AND HANDS WITH CLOTH. MAYKEL SORIANO, OTR/L
[2019-01-10 16:46] VITALS: BP 137/67
--- NOTE | 2019-01-10 18:26 | NUR ---
DISCHARGED TO HOME WITH FAMILY VIA WC. DISCHARGE INSTRUCTIONS GIVEN BOTH VERBALLY AND WRITTEN. ALL QUESTIONS ANSWERED. FAMILY VERBALIZED UNDERSTANDING OF SAME. IV TO LEFT WRIST D/C WITH CATHETER INTACT. ALL BELONGINGS WITH PATIENT.
--- NOTE | 2019-01-11 16:50 | MORECARE ---
CASE MANAGEMENT DISCHARGE SUMMARY PATIENT: LILLIAN HOWARD UNIT: [id number] ADM DATE: 01/07/19 AGE: 88 : 30 SEX: F ROOM/BED: D.2201 AUTHOR: MARIBELDOC PHYSICIAN: REFERRING PHYSICIAN: MARIEL RODGERS MD DATE OF SERVICE: 01/11/19 Discharge Plan Patient Name: LILLIAN HOWARD Facility: [facility]:[place] : 1930 Planned Disposition: Anticipated Discharge Date: Discharge Date: 01/10/2019 Expected LOS: 0 Initial Reviewer: [email or web address] Initial Review Date: 01/07/2019 Generated: 01/11/19 5:50 pm Comments DCP- Discharge Planning Updated by [email or web address]: Kathryn Salcedo on 01/10/19 11:[address] Patient should be discharging home today on [facility]. Karen (patient's daughter) stated that the bed has been delivered to the home. She also asked for a wheelchair. I called Mindi at [facility] to let her know. IMM served and explained. I anticipate a DC today. CM to follow and assist as needed DCP- Discharge Planning Updated by [email or web address]: Kathryn Salcedo on 01/09/19 2:[address] [facility] WILL BE MEETING WITH THE FAMILY AT 5:30 PM TODAY DCP- Discharge Planning Updated by [email or web address]: Kathryn Salcedo on 01/09/19 11:[address] spoke with Lynn at [facility] she will get intouch with daughter and set up the meeting. I explained to her that they wanted to meet after 5:00pm DCP- Discharge Planning Updated by [email or web address]: Kathryn Salcedo on 01/09/19 11:[address] CM met with patient & daughter Karen Martines to talk about her discharge plan. She would like to do [facility] at home. JAGRUTI signed and placed with in chart. I have sent the referral to [facility] and the family wants to meet after 5:00 pm today. CM will continue to follow and assist with DC planning DCP- Discharge Planning Updated by [email or web address]: Kathryn Salcedo on 01/09/19 8:03 am MICHELLE Leggett met with patient and family yesterday and gave them information about hospice. They will think about it and get back with CM . Coverage Notice Reviewer: [email or web address] Queenie Salcedo Notice Issued Date-Time: 01/09/2019 12:30 Notice Type: Patient Choice Letter Notice Delivered To: Patient Relationship to Patient: Garment Folder Name: Delivery Method: HAND - Hand Delivered Ammy Days: Prior Verbal Notification: Recipient Understood Notice: Yes Recipient Signature: Yes Med Rec Note Co-signed by Attending: Coverage Notice Comment: Reviewer: [email or web address] Queenie Salcedo Notice Issued Date-Time: 01/10/2019 12:20 Notice Type: IM Discharge Notice Notice Delivered To: Family Member Relationship to Patient: Daughter Garment Folder Name: karen martines Delivery Method: HAND - Hand Delivered Ammy Days: Prior Verbal Notification: Recipient Understood Notice: Yes Recipient Signature: Yes Med Rec Note Co-signed by Attending: Coverage Notice Comment: Last DP export: 01/10/19 11:29 am Patient Name: LILLIAN HOWARD Page [id number] at 1650 All edits/amendments must be made on the electronic document DICTATION DATE: 01/11/191648 STEEL PICKLER: RC 01/11/191648 RPT#: [id number] DC DATE:01/10/19 STATUS: DIS IN [facility] [address] [place] [address] END OF REPORT
== END 2019-01-10 18:28 | disposition home health service (06) | DRG 193 ==
LOC: D.ER 18:35 → D.MS 19:24 → D.EDHOLD 19:24 → D.MS 19:41
PROVIDERS: Family Medicine; ADMIT Internal Medicine Nephrology; ATTEND Internal Medicine Nephrology
DX: J18.9 Pneumonia, unspecified organism (principal); R53.2 Functional quadriplegia; N39.0 Urinary tract infection, site not specified; G72.81 Critical illness myopathy; Z68.1 Body mass index [BMI] 19.9 or less, adult; R63.4 Abnormal weight loss; D05.11 Intraductal carcinoma in situ of right breast; E03.9 Hypothyroidism, unspecified; I10 Essential (primary) hypertension